=== PATIENT | female | born 1955 | race Two or more races ===

== ENCOUNTER 2018-08-20 07:43 | Outpatient (CLI) | payer OTHER | END 2018-08-20 07:46 | disposition home or self-care (01) | LOC: SONOGRAMA 07:43 | DX: E04.2 Nontoxic multinodular goiter (principal) ==

== ENCOUNTER 2021-03-22 10:53 | Outpatient (CLI) | payer OTHER | END 2021-03-22 11:05 | disposition home or self-care (01) | LOC: SONOGRAMA 10:53 | PROVIDERS: ATTEND Pathology Anatomic Pathology & Clinical Pathology | DX: E04.2 Nontoxic multinodular goiter (principal) ==